=== PATIENT | female | born 1985 | race Caucasian/White ===

== ENCOUNTER 2017-11-01 14:47 | Emergency (ER) | payer BC ==
[~2017-11-01] VITALS: Ht 160 cm; Wt 77.1 kg
[2017-11-01] MEDS ORDERED: TOPI25TA PO (15:26)
[2017-11-01] MEDS ORDERED: TRAZ-147 PO (15:26)
[2017-11-01] MEDS ORDERED: METOPROLOL TART 50 MG TAB PO (15:26)
[2017-11-01] MEDS ORDERED: ESCI10TA PO (15:26)
--- NOTE | 2017-11-01 15:35 | NUR ---
Iced water & 2 cups of juice were provided.
[2017-11-01] MEDS ORDERED: LORAZEPAM 1 MG TABLET ONE (15:43)
[2017-11-01] MEDS ORDERED: LORAZEPAM 0.5 MG TABLET PO ONE (15:45)
[2017-11-01] MEDS ORDERED: TDAP DIPH,PERTUSS,TET VAC/PF 0.5 ML DISP.SYRIN IM ONE ×2 (15:45→15:52)
--- NOTE | 2017-11-01 15:47 | NUR ---
SCALP AREA WASHED WHERE LACERATION IS LOCATED. PT IS AWAKE AND ALERT. SHE IS CRYING. SHE ALREADY SPOKE TO [employer] AND FILED A REPORT.
--- NOTE | 2017-11-01 16:24 | NUR ---
PATIENT CALMED DOWN SIGNIFICANTLY. DR ALVAREZ SUCCESFULLY PLACED JT ON HER SCALP FOR LACERATION. DC, RX AND FOLLOW UP INSTRUCTIONS GIVEN AND EXPLAINED TO PATIENT WHO STATES SHE UNDERSTANDS ALL INSTRUCTIONS. PATIENT STATES SHE UNDERSTANDS THAT SHE IS NOT TO DRIVE. [facility] CALLED TO COME PICK HER UP FROM ER.
[2017-11-01 16:32] VITALS: BP 122/85
== END 2017-11-01 16:32 | disposition home or self-care (01) ==
LOC: ER 14:48
DX: S01.01XA Laceration without foreign body of scalp, initial encounter (principal); F15.10 Other stimulant abuse, uncomplicated; Z88.5 Allergy status to narcotic agent; Z79.891 Long term (current) use of opiate analgesic; Z79.899 Other long term (current) drug therapy
CPT/HCPCS: 90715; A4663

== ENCOUNTER 2017-11-06 14:30 | Emergency (ER) | payer BC ==
[~2017-11-06] VITALS: Ht 160 cm; Wt 74.8 kg
[~2017-11-06 14:30] MED LIST: ESCI10TA PO; METOPROLOL TART 50 MG TAB PO; TOPI25TA PO; TRAZ-147 PO
[2017-11-06] MEDS ORDERED: SULFAMETHOXAZOLE-TMP DS TABLET (14:44)
[2017-11-06] MEDS ORDERED: BUTALB/ACETAMINOPHEN/CAFFEINE TABLET PO ONE (15:00)
[2017-11-06] MEDS ORDERED: CODEINE/BUTA/APAP/CAFF 1 CAP CAPSULE ONE (15:09)
--- NOTE | 2017-11-06 15:40 | NUR ---
Patient discharged to home in stable conditon. Written and verbal after care instructions given. Patient verbalizes understanding of instructions.
== END 2017-11-06 15:40 | disposition home or self-care (01) ==
LOC: ER 14:31
DX: S01.01XD Laceration without foreign body of scalp, subsequent encounter (principal); G43.909 Migraine, unspecified, not intractable, without status migrainosus; F15.10 Other stimulant abuse, uncomplicated; Z88.5 Allergy status to narcotic agent; Z79.891 Long term (current) use of opiate analgesic; Z79.899 Other long term (current) drug therapy; X58.XXXD Exposure to other specified factors, subsequent encounter; Z48.00 Encounter for change or removal of nonsurgical wound dressing
CPT/HCPCS: 70450; 99284; A4663

== ENCOUNTER 2017-11-10 11:25 | Emergency (ER) | payer BC ==
[~2017-11-10] VITALS: Ht 160 cm; Wt 77.1 kg
[~2017-11-10 11:25] MED LIST changes: +SULFAMETHOXAZOLE-TMP DS TABLET
[2017-11-10] MEDS ORDERED: LORAZEPAM 1 MG TABLET ONE (11:42)
[2017-11-10] MEDS ORDERED: LORAZEPAM 0.5 MG TABLET PO ONE (11:45)
[2017-11-10] MEDS ORDERED: CODEINE/BUTA/APAP/CAFF 1 CAP CAPSULE ONE (12:07)
--- NOTE | 2017-11-10 12:08 | NUR ---
Patient discharged to home in stable conditon. Written and verbal after care instructions given. Patient verbalizes understanding of instructions.
[2017-11-10] MEDS ORDERED: BUTALB/ACETAMINOPHEN/CAFFEINE TABLET PO PRN (12:15)
== END 2017-11-10 12:09 | disposition home or self-care (01) ==
LOC: ER 11:25
DX: S01.01XD Laceration without foreign body of scalp, subsequent encounter (principal); F15.10 Other stimulant abuse, uncomplicated; Z48.02 Encounter for removal of sutures; Z88.5 Allergy status to narcotic agent; Z79.891 Long term (current) use of opiate analgesic; Z79.899 Other long term (current) drug therapy; X58.XXXD Exposure to other specified factors, subsequent encounter
CPT/HCPCS: A4663